=== PATIENT | male | born 2000 | race Caucasian/White ===

== ENCOUNTER 2022-05-04 08:05 | Emergency (ER) | payer OTHER ==
[2022-05-04] MEDS ORDERED: LIDOCAINE 1% MPF 5 ML VIAL ONE (08:29)
[2022-05-04] MEDS ORDERED: ONDANSETRON 4 MG (ODT) TAB ONE (08:30)
--- NOTE | 2022-05-04 09:07 | RAD REPORT ---
EXAM DESCRIPTION: CT - Head Brain Wo Cont - 05/04/2022 8:44 am CLINICAL HISTORY: Facial trauma, blunt COMPARISON: No comparisons TECHNIQUE: Axial 5 mm thick images of the head were obtained without IV contrast. All CT scans are performed using dose optimization technique as appropriate and may include automated exposure control or mA/KV adjustment according to patient size. FINDINGS: No intracranial hemorrhage, mass, edema or shift of mid-line structures. No abnormal extra -axial fluid collections. Ventricles are normal. Mastoid air cells are clear. No globe or orbital content abnormality seen. Soft tissue wound to the left forehead is seen. No foreign bodies identified. Underlying bone is inta ct. Paranasal sinuses are fully aerated. IMPRESSION: No intracranial abnormality identifiable. Soft tissue wound left forehead with underlying bone intact and sinuses fully aerated. No foreign stephen dy seen.
--- NOTE | 2022-05-04 09:58 | ER ---
Nurse's Notes [facility] Name: Dalton Gentile Age: 22 yrs Sex: Male : 2000 Arrival Date: 05/04/2022 Time: 08:11 Bed 5 Private MD: Diagnosis: Facial Laceration/ Laceration without foreign body of cheek and temporomandibular area Presentation: 05/04 08:11 Chief complaint: Patient states: "I slipped into the window seal and hit my head". aa5 Unknown LOC, pt states "I just saw white for a good 3 to 4 seconds". Laceration to left eyebrow that is difficult to visualize at this time due to dry blood and pressure dressing in place. 08:11 Coronavirus screen: At this time, the client does not indicate any symptoms associated aa5 with coronavirus-19. Ebola Screen: Patient denies travel to an Ebola-affected area in the 21 days before illness onset. Mechanism of Injury: resulted from a fall, slipped. Initial Sepsis Screen: Does the patient meet any 2 criteria? No. Patient's initial sepsis screen is negative. Does the patient have a suspected source of infection? No. Patient's initial sepsis screen is negative. Risk Assessment: Do you want to hurt yourself or someone else? Patient reports no desire to harm self or others. Onset of symptoms was May 04, 2022. 08:11 Acuity: GHADA 3 aa5 08:11 Method Of Arrival: Law Enforcement: [place] [employer] aa5 Historical: - Allergies: 08:11 No Known Allergies; aa5 - Home Meds: 08:11 None [Active]; aa5 - PMHx: 08:11 None; aa5 - PSHx: 08:11 Testicular Sx; aa5 - Immunization history:: Adult Immunizations unknown. - Social history:: Smoking status: Patient denies any tobacco usage or history of. - Family history:: not pertinent. Screenin:15 Abuse screen: Denies injuries from another. Nutritional screening: No deficits noted. aa5 Tuberculosis screening: No symptoms or risk factors identified. Fall Risk Fall in past 12 months (25 points). Total Ball Fall Scale indicates Low Risk Score (25-44 pts). Fall prevention measures have been instituted. Side Rails Up X 2. Assessment: 08:11 General: Appears comfortable, Behavior is calm, cooperative. Pain: Complains of pain in aa5 left side of forehead Pain currently is 7 out of 10 on a pain scale. Quality of pain is described as aching, tender, Is continuous. Neuro: Level of Consciousness is awake, alert, obeys commands, Oriented to person, place, time, situation, Cellulose Insulation Helper are equal bilaterally Moves all extremities. Speech is normal, Facial symmetry appears normal, Pupils are PERRLA. Cardiovascular: Heart tones S1 S2 present Rhythm is regular. Respiratory: Airway is patent Respiratory effort is even, unlabored, Respiratory pattern is regular, symmetrical. GI: Abdomen is flat, non-distended, Bowel sounds present X 4 quads. Abd is soft and non tender X 4 quads. Reports nausea. : No signs and/or symptoms were reported regarding the genitourinary system. EENT: No signs and/or symptoms were reported regarding the EENT system. Derm: Skin is pink, warm \\T\\ dry. Laceration to left eyebrow noted, dry blood noted and mild active bleeding noted. Musculoskeletal: Denies pain to all 4 extremities. 09:58 Reassessment: Laceration to left eyebrow is jagged and measures approximately 1 in aa5 long, cleaned with saline. . 10:53 Reassessment: Patient is alert, oriented x 3, equal unlabored respirations, skin aa5 warm/dry/pink. Vital Signs: 08:11 BP 129 / 62; Pulse 64; Resp 16 S; Temp 98.1(TE); Pulse Ox 100% on R/A; Weight 71.21 kg aa5 (R); Height 5 ft. 11 in. (180.34 cm) (R); Pain 7/10; 10:50 BP 124 / 65; Pulse 71; Resp 16 S; Pulse Ox 99% on R/A; aa5 08:11 Body Mass Index 21.90 (71.21 kg, 180.34 cm) aa5 William Coma Score: 08:11 Eye Response: spontaneous(4). Verbal Response: oriented(5). Motor Response: obeys aa5 commands(6). Total: 15. 08:30 Eye Response: spontaneous(4). Verbal Response: oriented(5). Motor Response: obeys rt commands(6). Total: 15. ED Course: 08:11 Patient arrived in ED. aa5 08:11 Arm band placed on. aa5 08:11 Patient has correct armband on for positive identification. Bed in low position. Call aa5 light in reach. Side rails up X2. 1 gate guard at bedside and 2 outside the room. Pt restrained via handcuffs to feet chain by residential guards. 08:13 Abe Sanchez MD is Attending Physician. rt 08:28 Graciela Tracey, RN is Primary Nurse. aa5 08:46 CT Head Brain wo Cont In Process Unspecified. EDMS 08:49 Triage completed. aa5 10:00 Assist provider with laceration repair on left eyebrow using sutures. Set up tray. aa5 Performed by Abe Sanchez MD Dressed with 4X4s, Kerlix, Neosporin, Patient tolerated well. 11:00 Patient did not have IV access during this emergency room visit. aa5 Administered Medications: 08:32 Drug: Zofran (Ondansetron) 4 mg Route: PO; aa5 10:00 Follow up: Response: No adverse reaction aa5 10:00 Drug: Lidocaine (1 %) 5 mg {Note: administered by MD for laceration repair .} Volume: 5 aa5 ml; Route: Infiltration; 10:55 Drug: Ibuprofen 800 mg Route: PO; aa5 11:00 Follow up: Response: Medication administered at discharge. aa5 Medication: 11:00 VIS not applicable for this client. aa5 Outcome: 09:57 Discharge ordered by MD. rt 11:00 Discharged to Law Enforcement aa5 11:00 Condition: good 11:00 Discharge instructions given to patient, Instructed on discharge instructions, follow up and referral plans. wound care, Demonstrated understanding of instructions, follow-up care, wound care. 11:01 Patient left the ED. iw Signatures: Dispatcher [employer] Alice Lyons RN RN iw Calderon, Audri, MIRNA RN aa5 Abe Sanchez MD MD rt
--- NOTE | 2022-05-04 09:58 | EDPHYS ---
Physician Documentation [facility] Name: Dalton Gentile Age: 22 yrs Sex: Male : 2000 Arrival Date: 05/04/2022 Time: 08:11 Bed 5 Private MD: ED Physician Abe Sanchez HPI: 05/04 08:30 This 22 yrs old Male presents to ER via Unassigned with complaints of Head injury. rt 08:30 The patient or guardian reports a laceration, 3 cm(s), irregular. The complaints affect rt the left side of forehead. Context of injury: The problem was sustained at [facility]. Onset: The symptoms/episode began/occurred just prior to arrival. Associated signs and symptoms: Pertinent positives: nausea. Severity of symptoms: At their worst the symptoms were mild. Patient fell while at [employer], hitting his head on a window. He reports that he was dazed but did not lose consciousness, reports nausea. He sustained a laceration above the left eyebrow. Denies other acute complaints at this time, denies neck pain. Symptoms are mild in severity, pain is aching nature, nonradiating, no other aggravating or alleviating factors.. Historical: - Allergies: 08:11 No Known Allergies; aa5 - Home Meds: 08:11 None [Active]; aa5 - PMHx: 08:11 None; aa5 - PSHx: 08:11 Testicular Sx; aa5 - Immunization history:: Adult Immunizations unknown. - Social history:: Smoking status: Patient denies any tobacco usage or history of. - Family history:: not pertinent. ROS: 08:30 Constitutional: Negative for fever, chills, and weight loss, Eyes: Negative for injury, rt pain, redness, and discharge, ENT: Negative for injury, pain, and discharge, Neck: Negative for injury, pain, and swelling, Cardiovascular: Negative for chest pain, palpitations, and edema, Respiratory: Negative for shortness of breath, cough, wheezing, and pleuritic chest pain, Abdomen/GI: Negative for abdominal pain, nausea, vomiting, diarrhea, and constipation, MS/Extremity: Negative for injury and deformity, Skin: Negative for injury, rash, and discoloration, Neuro: Negative for headache, weakness, numbness, tingling, and seizure, Psych: Negative for depression, anxiety, suicide ideation, homicidal ideation, and hallucinations. 08:30 Abdomen/GI: Positive for nausea, Negative for abdominal pain, vomiting. Exam: 08:30 Constitutional: This is a well developed, well nourished patient who is awake, alert, rt and in no acute distress. Eyes: Pupils equal round and reactive to light, extra-ocular motions intact. Lids and lashes normal. Conjunctiva and sclera are non-icteric and not injected. Cornea within normal limits. Periorbital areas with no swelling, redness, or edema. ENT: Nares patent. No nasal discharge, no septal abnormalities noted. Tympanic membranes are normal and external auditory canals are clear. Oropharynx with no redness, swelling, or masses, exudates, or evidence of obstruction, uvula midline. Mucous membranes moist. Chest/axilla: Normal chest wall appearance and motion. Nontender with no deformity. No lesions are appreciated. Cardiovascular: Regular rate and rhythm with a normal S1 and S2. No gallops, murmurs, or rubs. Normal PMI, no JVD. No pulse deficits. Respiratory: Lungs have equal breath sounds bilaterally, clear to auscultation and percussion. No rales, rhonchi or wheezes noted. No increased work of breathing, no retractions or nasal flaring. Abdomen/GI: Soft, non-tender, with normal bowel sounds. No distension or tympany. No guarding or rebound. No evidence of tenderness throughout. Skin: Warm, dry with normal turgor. Normal color with no rashes, no lesions, and no evidence of cellulitis. MS/ Extremity: Pulses equal, no cyanosis. Neurovascular intact. Full, normal range of motion. Neuro: Awake and alert, GCS 15, oriented to person, place, time, and situation. Cranial nerves II-XII grossly intact. Motor strength 5/5 in all extremities. Sensory grossly intact. Cerebellar exam normal. Normal gait. Psych: Awake, alert, with orientation to person, place and time. Behavior, mood, and affect are within normal limits. 08:30 Head/face: Centimeter stellate laceration to the left eyebrow, extraocular muscles are intact, conjunctiva is normal, no other signs of trauma.. 08:30 Neck: No posterior cervical midline tenderness, full range of motion. Vital Signs: 08:11 BP 129 / 62; Pulse 64; Resp 16 S; Temp 98.1(TE); Pulse Ox 100% on R/A; Weight 71.21 kg aa5 (R); Height 5 ft. 11 in. (180.34 cm) (R); Pain 7/10; 10:50 BP 124 / 65; Pulse 71; Resp 16 S; Pulse Ox 99% on R/A; aa5 08:11 Body Mass Index 21.90 (71.21 kg, 180.34 cm) aa5 Temple Coma Score: 08:11 Eye Response: spontaneous(4). Verbal Response: oriented(5). Motor Response: obeys aa5 commands(6). Total: 15. 08:30 Eye Response: spontaneous(4). Verbal Response: oriented(5). Motor Response: obeys rt commands(6). Total: 15. Laceration: 10:14 Wound Repair of 3cm ( 1.2in ) subcutaneous laceration to left side of forehead. rt Irregularly shaped.. Distal neuro/vascular/tendon intact. Anesthesia: Local anesthetic administered with 1 mls of 1% lidocaine. Wound prep: Copious irrigation. Skin closed with 8 4-0 Prolene using simple sutures and sterile technique. Dressed with Kerlix. Patient tolerated well. MDM: 08:19 Patient medically screened. rt 10:14 Differential diagnosis: Laceration of Intracranial bleed-. Data reviewed: vital signs, rt nurses notes, radiologic studies. ED course: Patient presents to the ED with injury to the left eyebrow, it was closed without difficulty. It was cleansed with copious irrigation. There is no neurovascular compromise, good hemostasis. CT scan is unremarkable, wound care was discussed with patient was stable for outpatient care. 05/04 08:20 Order name: CT Head Brain wo Cont; Complete Time: 09:24 rt 05/04 08:34 Order name: Dressing - Wound; Complete Time: 11:01 aa5 05/04 08:34 Order name: Gloves, Sterile; Complete Time: 08:34 aa5 05/04 08:34 Order name: Setup Suture Tray; Complete Time: 08:34 aa5 05/04 08:53 Order name: Wound Care; Complete Time: 08:54 rt Administered Medications: 08:32 Drug: Zofran (Ondansetron) 4 mg Route: PO; aa5 10:00 Follow up: Response: No adverse reaction aa5 10:00 Drug: Lidocaine (1 %) 5 mg {Note: administered by for laceration repair .} Volume: 5 aa5 ml; Route: Infiltration; 10:55 Drug: Ibuprofen 800 mg Route: PO; aa5 11:00 Follow up: Response: Medication administered at discharge. aa5 Disposition Summary: 05/04/22 09:57 Discharge Ordered Location: Home rt Problem: new rt Symptoms: have improved rt Condition: Stable rt Diagnosis - Facial Laceration/ Laceration without foreign body of cheek and temporomandibular rt area Followup: rt - With: Private Physician - When: 7 - 10 days - Reason: Staple/Suture removal Discharge Instructions: - Discharge Summary Sheet rt - Facial Laceration rt Forms: - Medication Reconciliation Form rt - Thank You Letter rt - Antibiotic Education rt - Prescription Opioid Use rt Signatures: Dispatcher [employer] Graciela Zambrano RN RN aa5 Abe Sanchez MD MD rt
[2022-05-04] MEDS ORDERED: IBUPROFEN 400 MG TAB ONE (10:55)
[2022-05-04 11:09] VITALS: BP 129/62; TEMP 98.1; O2SAT 100
== END 2022-05-04 11:01 | disposition home or self-care (01) ==
LOC: ER 08:05
PROC: 0JQ10ZZ Repair Face Subcutaneous Tissue and Fascia, Open Approach (ICD-10-PCS; principal; 2022-05-04)
DX: S01.112A Laceration without foreign body of left eyelid and periocular area, initial encounter (principal)
CPT/HCPCS: 70450; 99283; 12013; Q0162; J2001